=== PATIENT | female | born 1995 | race African-American/Black ===

== ENCOUNTER 2016-11-13 11:32 | Emergency (ER) | payer BC, OTHER ==
[~2016-11-13 11:32] MED LIST: PREN1CAP PO
--- NOTE | 2016-11-13 12:52 | PD ---
HPI Chief Complaint [facility], she has has no complaints of is mild contractions, no bleeding leakage of fluid. Baby is active in utero Date Seen: Nov 13, 2016 Travel History International Travel<30 Days: No Contact w/Intl Traveler<30Days: No Known Affected Area: No History of Present Illness HPI This patient is 20-year-old black female at 40 weeks gestation [facility]. Our here on OB ED patient's has a beautifully reactive strip with accelerations and variability. The baby is active according the patient. She has no other problems is mild contractions and no bleeding or leakage of fluid. Para: 0 : 2 History Social History Alcohol Use: No Tobacco Use: No Substance Abuse: No Allergies-Medications (Allergen,Severity, Reaction): Coded Allergies: No Known Allergies (Unverified , 11/13/16) Home Meds Reported Medications Vit W/ Fe Polysacch C (Vitafol Ultra 29-0.6-0.4-200 mg)1 Cap Cap Po # 30 07/21/16 Review of Systems General / Constitutional: No: Fever, Weight Gain, Chills, Other Eyes: No: Diploplia, Blurred Vision, Visual changes, Pain, Photophobia HENT: No: Headaches, Vertigo, Lightheadedness Cardiovascular: No: Irregular Rhythm, Chest Pain or Discomfort, Palpitations, Tachycardia, Syncope, Varicosities, Edema, Cyanosis Respiratory: No: Cough, Short of Breath, Other Gastrointestinal: No: Nausea, Vomiting, Diarrhea Genitourinary: No: Decreased Urinary Output, Oliguria Musculoskeletal: No: Limited ROM, Weakness, Cramping, Edema, Pain Skin: No Rash, No Itching, No Dryness, No Lumps, No Change in Pigmentation, No Change in Nails, No Alopecia, No Lesions Neurologic: No: Weakness, Dizziness, Syncope, Focal Abnormalities, Coordination Problem, Headache, Slurred Speech, Seizures Psychiatric: No: Depression, Suicidal Ideations, Homicidal Ideation Endocrine: No: Heat Intolerance, Cold Intolerance, Polydipsia, Polyuria, Other Physical Exam Narrative GENERAL: Well-nourished, well-developed patient. SKIN: Warm and dry. HEAD: Normocephalic and atraumatic. EYES: No scleral icterus. No injection or drainage. ENT: No nasal drainage noted. Mucous membranes pink. Airway patent. NECK: Supple, trachea midline. No JVD. CARDIOVASCULAR: Regular rate and rhythm without murmurs, gallops, or rubs. RESPIRATORY: Breath sounds equal bilaterally. No accessory muscle use. BREASTS: Bilateral exam showed no masses , no retractions, no nipple discharge. ABDOMEN/GI: Abdomen soft, non-tender, bowel sounds present, no rebound, no guarding Gravid to [39-] weeks size Fundal Height: [39-] GENITOURINARY: External Genitalia: intact and normal in appearance BUS glands: [-] Cervix: [-] Dilatation: [-] 1 cm Effacement: [- 70% Station: [-3] Presentation: [vtx-] Membranes: [intact Uterine Contractions: [irreg] FHT's: Category: [1-] Baseline: [144-] Reactive: [reactive-] Variability: mod Decels: [-none] EXTREMITIES: No cyanosis or edema. BACK: Nontender without obvious deformity. No CVA tenderness. NEUROLOGICAL: Awake and alert. Motor and sensory grossly within normal limits. Five out of 5 muscle strength in all muscle groups. Normal speech. Data Data Labs NST reactive MDM Interpretation(s) Patient is 20-year-old white female at 40 weeks [facility]. Here on OB ED via NST is beautifully reactive she is having irregular contractions cervix is 1 cm and 70% effaced, discharged home to bedrest return for increase in pain bleeding or leakage of fluid. We'll set patient up for induction of labor and 1 week when she be 41 weeks Diagnosis Diagnosis: Primary Impression: NST (non-stress test) nonreactive Additional Impression: Dover Ramírez contractions Disposition: DISCHARGE HOME Condition: Stable Patel Pierre II, MD Nov 13, 2016 12:52
[2017-01-05] MEDS ORDERED: LO LTAB PO (10:37)
[2017-01-12] MEDS ORDERED: METR500T10 PO (10:00)
== END 2016-11-13 13:00 | disposition home or self-care (01) ==
LOC: HOBED 11:32
DX: O47.1 False labor at or after 37 completed weeks of gestation (principal); Z3A.40 40 weeks gestation of pregnancy
CPT/HCPCS: 59025

== ENCOUNTER 2016-11-17 21:48 | Inpatient (IN) | payer BC, OTHER ==
[~2016-11-17] VITALS: Ht 154.9 cm; Wt 74.4 kg
[2016-11-17 22:45] VITALS: BP 135/91; PULSE 83
[2016-11-17] MEDS ORDERED: LACTATED RINGER'S 1000 ML INJ 1,000 ML IV PRN (23:47)
--- NOTE | 2016-11-17 23:47 | HHI.HP ---
HPI Chief Complaint Postdates induction Date Seen: Nov 17, 2016 Travel History International Travel<30 Days: No Contact w/Intl Traveler<30Days: No Known Affected Area: No History of Present Illness HPI This patient is a 20-year-old black female A1 at 40 weeks and 5 days [facility]dates induction she denies bleeding or pain or rupture the membranes, baby is active heart rate tracing however is nonreactive at time of admission, there is good variability but is not classically reactive with accelerations at this time. records are available GBS is negative Para: 0 : 2 Miscarriage: 1 History Past Medical History Medical History: Denies Significant Hx Social History Alcohol Use: No Tobacco Use: Yes Substance Abuse: Yes Allergies-Medications (Allergen,Severity, Reaction): Coded Allergies: No Known Allergies (Unverified , 11/13/16) Home Meds Reported Medications Vit W/ Fe Polysacch C (Vitafol Ultra 29-0.6-0.4-200 mg)1 Cap Cap Po # 30 07/21/16 Review of Systems General / Constitutional: No: Fever, Weight Gain, Chills, Other Eyes: No: Diploplia, Blurred Vision, Visual changes, Pain, Photophobia HENT: No: Headaches, Vertigo, Lightheadedness Cardiovascular: No: Irregular Rhythm, Chest Pain or Discomfort, Palpitations, Tachycardia, Syncope, Varicosities, Edema, Cyanosis Respiratory: No: Cough, Short of Breath, Other Gastrointestinal: No: Nausea, Vomiting, Diarrhea Genitourinary: No: Decreased Urinary Output, Oliguria Musculoskeletal: No: Limited ROM, Weakness, Cramping, Edema, Pain Skin: No Rash, No Itching, No Dryness, No Lumps, No Change in Pigmentation, No Change in Nails, No Alopecia, No Lesions Neurologic: No: Weakness, Dizziness, Syncope, Focal Abnormalities, Coordination Problem, Headache, Slurred Speech, Seizures Psychiatric: No: Depression, Suicidal Ideations, Homicidal Ideation Endocrine: No: Heat Intolerance, Cold Intolerance, Polydipsia, Polyuria, Other Physical Exam Narrative GENERAL: Well-nourished, well-developed patient. SKIN: Warm and dry. HEAD: Normocephalic and atraumatic. EYES: No scleral icterus. No injection or drainage. ENT: No nasal drainage noted. Mucous membranes pink. Airway patent. NECK: Supple, trachea midline. No JVD. CARDIOVASCULAR: Regular rate and rhythm without murmurs, gallops, or rubs. RESPIRATORY: Breath sounds equal bilaterally. No accessory muscle use. BREASTS: Bilateral exam showed no masses , no retractions, no nipple discharge. ABDOMEN/GI: Abdomen soft, non-tender, bowel sounds present, no rebound, no guarding Gravid to [-38] weeks size Fundal Height: [-37] GENITOURINARY: External Genitalia: intact and normal in appearance BUS glands: [-] Cervix: [-] Dilatation: [2-] Effacement: [-70] Station: [-3] Presentation: [-vtx] Membranes: [intact ] Uterine Contractions: [-irreg] FHT's: Category: [1-] Baseline: [133-] Reactive: [NR-] Variability: [-mod] Decels: [+ variables-] EXTREMITIES: No cyanosis or edema. BACK: Nontender without obvious deformity. No CVA tenderness. NEUROLOGICAL: Awake and alert. Motor and sensory grossly within normal limits. Five out of 5 muscle strength in all muscle groups. Normal speech. Assessment/Plan Assessment and Plan Patient is a 20-year-old white female A1 at 40 weeks 5 days [facility]dates [facility]. Patient presents with no complaints at this time records are available, she is GBS negative. Heart rate tracing shows good variability but is not classically reactive at this time we have not seen accelerations would qualify for reactive NST cervix is 2/ 70 and - 3 vertex Plan to admit cervix is 30 ripened to 170 presents proceed with the Pitocin augmentation to establish regular contractility and then observe babys reaction to that. Patel Pierre II, MD Nov 17, 2016 23:47
[2016-11-17 23:55] LABS: AUTOMATED NEUTROPHIL # 4.8 TH/MM3 (1.8-7.7); BASOPHIL % 0.3 % (0.0-2.0); EOSINOPHIL # 0.3 TH/MM3 (0-0.4); EOSINOPHIL % 3.9 % (0.0-4.0); HEMATOCRIT 31.2 % (35.0-46.0); HEMO FLAGS DIFF FINAL; LYMPH % 16.9 % (9.0-44.0); LYMPHOCYTE # 1.2 TH/MM3 (1.0-4.8); MEAN CELL VOLUME 84.5 FL (80.0-100.0); MEAN CORPUSCULAR HEMOGLOBIN 28.2 PG (27.0-34.0); MEAN CORPUSCULAR HGB CONC 33.3 % (32.0-36.0); MONO % 13.1 % (0.0-8.0); NEUT % 65.8 % (16.0-70.0); PLATELET COUNT 210 TH/MM3 (150-450); RED BLOOD COUNT 3.69 MIL/MM3 (4.00-5.30); RED CELL DISTRIBUTION WIDTH 14.6 % (11.6-17.2); WHITE BLOOD COUNT 7.3 TH/MM3 (4.0-11.0)
[2016-11-18] VITALS (44 sets, daily range): BP systolic 119–142; BP diastolic 49–107; PULSE 56–145; RESP 16–20; TEMP 97.5–98.6
[2016-11-18] MEDS ORDERED: OXYTOCIN 30 UNITS-500ML PREMIX 500 ML IV ONE
[2016-11-18] MEDS ORDERED: MINERAL OIL 10 ML VIAL TOPICAL PRN
[2016-11-18] MEDS ORDERED: SODIUM CHLORID 0.9% 500 ML INJ 500 ML IV PRN
[2016-11-18] MEDS ORDERED: ONDANSETRON HCL 4 MG/2 ML VIAL IV PRN
[2016-11-18] MEDS ORDERED: OXYTOCIN 30 UNITS-500ML PREMIX 500 ML IV SCH
[2016-11-18] MEDS ORDERED: LIDOCAINE HCL 1% 50 ML VIAL I-DERMAL PRN
[2016-11-18] MEDS ORDERED: LIDOCAINE HCL 1% 50 ML VIAL INFIL PRN
[2016-11-18] MEDS ORDERED: CITRIC ACID-SODIUM CITRATE LIQ 30 ML UDC PO SCH
[2016-11-18] MEDS: LACTATED RINGER'S 1000 ML INJ 1,000 ML IV SCH ×2 (00:02→23:47)
[2016-11-18] MEDS ORDERED: SODIUM CHLOR 0.9% 1000 ML INJ 1,000 ML IV PRN (00:07)
[2016-11-18 00:20] LABS: BACTERIA, URINE RARE /hpf; BLOOD, URINE NEG (NEG); COMMENT (UR) CULTURE INDICATED; CULTURE IF INDICATED CULTURE INDICATED; GLUCOSE,URINE NEG (NEG); KETONE, URINE NEG (NEG); MUCUS URINE FEW /lpf (OCC); NITRITE,URINE NEG (NEG); PH, URINE 6.5 (5.0-8.5); SQUAMOUS EPITHELIAL CELL URINE 18 /hpf (0-5); URINE COLOR YELLOW (YELLW/STRAW)
[2016-11-18 00:25] LABS: ALT (GPT) 14 U/L (9-42); ANION GAP 13 MEQ/L (5-15); AST (GOT) 23 U/L (16-38); BICARBONATE 21.3 MEQ/L (21.0-32.0); BLOOD UREA NITROGEN 9 MG/DL (7-18); CHLORIDE 108 MEQ/L (98-107); GLOMERULAR FILTRATION RATE 117 ML/MIN (>89); SODIUM (NA) 142 MEQ/L (136-145)
[2016-11-18 00:26] LABS: ALKALINE PHOSPHATASE 365 U/L (45-117); TOTAL BILIRUBIN ADULT 0.5 MG/DL (0.2-1.0)
[2016-11-18] MEDS ORDERED: fentaNYL 2MCG-BUPIV 0.125% INJ 100 ML ONE (04:04)
[2016-11-18] MEDS ORDERED: NO SYSTEM NARCOTICS XX PRN (05:15)
[2016-11-18] MEDS ORDERED: ePHEDrine/NS 25 MG/5 ML SYR IV PRN (05:15)
[2016-11-18] MEDS ORDERED: fentaNYL 2MCG-BUPIV 0.125% 100 ML EPIDURAL SCH (05:15)
[2016-11-18] MEDS ORDERED: DO NOT ADMINISTER ANTICOAGULANTS XX PRN (05:15)
--- NOTE | 2016-11-18 08:25 | PD.OB.DELI ---
Delivery Date: Nov 18, 2016 Anesthesia: Epidural Episiotomy: Midline Vaginal Delivery: Normal Presentation: Occiput anterior Nuchal Cord: None Delayed cord clamping (45 sec): No : Female One Minute : 4, 9 Weight: 3600 Care: Suctioned, Responded to stimulation Placenta: Spontaneous delivery, Intact, 3 vessel cord Laceration: Episiotomy, 2 deg Repair: Chromic running Additional Information 20 year old now delivered at 40 weeks and 6 days gestation via vaginal delivery, episiotomy performed and repaired with 2.0 running chromic suture, placenta delivered spontaneously and intact. Wisam Alberto MD R1 Nov 18, 2016 08:25
[2016-11-18 08:30] LABS: BLOOD GAS BASE EXCESS -5.9 mmol/L (-2-2); BLOOD GAS O2 HGB SATURATION 34 % (90-100); CORD BLOOD GAS HCO3 20 mmol/L (21-29); CORD BLOOD GAS PCO2 48 mmHG (34-78); CORD BLOOD GAS PH 7.25 (7.14-7.42); CORD BLOOD GAS PO2 21 mmHG (3.0-40.0); DRAW SITE CORD BLOOD; STAT NO
[2016-11-18] MEDS ORDERED: WITCH HAZEL 50%/GLYCERIN 12.5% 40 PAD JAR TOPICAL PRN (08:30)
[2016-11-18] MEDS ORDERED: SODIUM CHLORIDE 0.9% FLUSH 5 ML FLUSH IV PRN (08:30)
[2016-11-18] MEDS ORDERED: DOCUSATE SODIUM 50 MG/SENNA 8.6 MG TAB PO PRN (08:30)
[2016-11-18] MEDS ORDERED: BENZOCAINE 20% TOPICAL SPRAY 60 ML CAN TOPICAL PRN (08:30)
[2016-11-18] MEDS ORDERED: ZOLPIDEM TARTRATE 5 MG TAB PO PRN (08:30)
[2016-11-18] MEDS ORDERED: ONDANSETRON ODT 4 MG TAB PO PRN (08:30)
[2016-11-18] MEDS ORDERED: ALUMINUM/MAGNESIUM/SIMETH 30 ML CUP PO PRN (08:30)
--- NOTE | 2016-11-18 08:32 | PD.LABORPN ---
Subjective Subjective OB attending note This patient delivered vaginally over of second degree episiotomy without complication, as a male infant weight 3600 g 4/ 9 baby initially hypotonic responded to stimulation and blow-by oxygen. Cord gas obtained is pending time of dictation cord blood obtained placenta delivered spontaneously intact, episiotomy repaired in layers without difficulty, EBL 200 cc, mother baby doing well. Delivery done by family medicine residents did excellent job Objective Vital Signs Vital Signs Date Time Temp Pulse Resp B/P Pulse Ox O2 Delivery O2 Flow Rate FiO2 11/18/16 08:15 80 134/88 11/18/16 08:02 108 123/79 11/18/16 07:14 144 130/92 11/18/16 07:10 99 11/18/16 07:05 112 11/18/16 07:00 108 11/18/16 06:41 145 16 124/84 11/18/16 06:23 98.6 11/18/16 06:17 78 16 132/93 11/18/16 06:01 65 16 142/92 11/18/16 05:46 69 16 11/18/16 05:46 129/82 11/18/16 05:31 73 130/74 11/18/16 05:30 18 11/18/16 05:17 18 11/18/16 05:16 56 135/76 11/18/16 05:01 68 18 127/81 11/18/16 04:55 63 11/18/16 04:49 133/73 11/18/16 04:47 64 119/63 11/18/16 04:45 18 11/18/16 04:36 101 119/76 11/18/16 04:36 98.1 11/18/16 04:30 76 119/85 11/18/16 04:30 18 11/18/16 04:25 93 11/18/16 04:24 136/88 11/18/16 04:01 18 11/18/16 04:00 70 11/18/16 04:00 142/79 11/18/16 03:31 74 130/78 11/18/16 03:30 20 11/18/16 03:02 18 11/18/16 03:01 77 131/86 11/18/16 02:32 97.5 11/18/16 02:32 18 11/18/16 02:31 141/49 11/18/16 02:31 59 11/18/16 02:02 125/74 11/18/16 02:02 56 11/18/16 02:02 18 11/18/16 01:31 139/82 11/18/16 01:31 56 11/18/16 01:30 18 11/18/16 01:01 16 11/18/16 01:01 56 119/67 11/18/16 00:30 76 135/94 11/18/16 00:30 16 Objective Assessment/Plan Assessment and Plan Normal vaginal delivery with initial hypotonic baby responded well to stimulation and O2 Patel Pierre II, MD Nov 18, 2016 08:31
--- NOTE | 2016-11-18 08:36 | PD.OB.ANTE ---
Subjective Diagnosis: (1) IUGR (intrauterine growth restriction) affecting care of mother (2) Oligohydramnios antepartum (3) Cocaine abuse affecting Objective Vital Signs Vital Signs Date Time Temp Pulse Resp B/P Pulse Ox O2 Delivery O2 Flow Rate FiO2 11/18/16 08:15 80 134/88 11/18/16 08:02 108 123/79 11/18/16 07:14 144 130/92 11/18/16 07:10 99 11/18/16 07:05 112 11/18/16 07:00 108 11/18/16 06:41 145 16 124/84 11/18/16 06:23 98.6 11/18/16 06:17 78 16 132/93 11/18/16 06:01 65 16 142/92 11/18/16 05:46 69 16 11/18/16 05:46 129/82 11/18/16 05:31 73 130/74 11/18/16 05:30 18 11/18/16 05:17 18 11/18/16 05:16 56 135/76 11/18/16 05:01 68 18 127/81 11/18/16 04:55 63 11/18/16 04:49 133/73 11/18/16 04:47 64 119/63 11/18/16 04:45 18 11/18/16 04:36 101 119/76 11/18/16 04:36 98.1 11/18/16 04:30 76 119/85 11/18/16 04:30 18 11/18/16 04:25 93 11/18/16 04:24 136/88 11/18/16 04:01 18 11/18/16 04:00 70 11/18/16 04:00 142/79 11/18/16 03:31 74 130/78 11/18/16 03:30 20 11/18/16 03:02 18 11/18/16 03:01 77 131/86 11/18/16 02:32 97.5 11/18/16 02:32 18 11/18/16 02:31 141/49 11/18/16 02:31 59 11/18/16 02:02 125/74 11/18/16 02:02 56 11/18/16 02:02 18 11/18/16 01:31 139/82 11/18/16 01:31 56 11/18/16 01:30 18 11/18/16 01:01 16 11/18/16 01:01 56 119/67 11/18/16 00:30 76 135/94 11/18/16 00:30 16 11/18/16 00:05 18 11/18/16 00:00 70 11/18/16 00:00 125/107 11/17/16 22:45 83 135/91 Lab & Micro Results Test 11/17/16 11/17/16 11/18/16 22:30 22:40 07:57 Urine Color YELLOW Urine Turbidity HAZY Urine pH 6.5 Urine Specific [place] 1.010 Urine Protein TRACE mg/dL Urine Glucose (UA) NEG mg/dL Urine Ketones NEG mg/dL Urine Occult Blood NEG Urine Nitrite NEG Urine Bilirubin NEG Urine Urobilinogen LESS THAN 2.0 MG/DL Urine Leukocyte Esterase LARGE Urine RBC LESS THAN 1 /hpf Urine WBC 54 /hpf Urine WBC Clumps FEW Urine Squamous Epithelial 18 /hpf Cells Urine Bacteria RARE /hpf Urine Mucus FEW /lpf Microscopic Urinalysis Comment CULTURE INDICATED White Blood Count 7.3 TH/MM3 Red Blood Count 3.69 MIL/MM3 Hemoglobin 10.4 GM/DL Hematocrit 31.2 % Mean Corpuscular Volume 84.5 FL Mean Corpuscular Hemoglobin 28.2 PG Mean Corpuscular Hemoglobin 33.3 % Concent Red Cell Distribution Width 14.6 % Platelet Count 210 TH/MM3 Mean Platelet Volume 11.0 FL Neutrophils (%) (Auto) 65.8 % Lymphocytes (%) (Auto) 16.9 % Monocytes (%) (Auto) 13.1 % Eosinophils (%) (Auto) 3.9 % Basophils (%) (Auto) 0.3 % Neutrophils # (Auto) 4.8 TH/MM3 Lymphocytes # (Auto) 1.2 TH/MM3 Monocytes # (Auto) 0.9 TH/MM3 Eosinophils # (Auto) 0.3 TH/MM3 Basophils # (Auto) 0.0 TH/MM3 CBC Comment DIFF FINAL Differential Comment Sodium Level 142 MEQ/L Potassium Level 4.0 MEQ/L Chloride Level 108 MEQ/L Carbon Dioxide Level 21.3 MEQ/L Anion Gap 13 MEQ/L Blood Urea Nitrogen 9 MG/DL Creatinine 0.76 MG/DL Estimat Glomerular Filtration 117 ML/MIN Rate Random Glucose 73 MG/DL Calcium Level 8.4 MG/DL Total Bilirubin 0.5 MG/DL Aspartate Amino Transf 23 U/L (AST/SGOT) Alanine Aminotransferase 14 U/L (ALT/SGPT) Alkaline Phosphatase 365 U/L Total Protein 6.7 GM/DL Albumin 2.7 GM/DL Blood Type O POSITIVE Antibody Screen NEGATIVE Blood Bank Comment Band and Hold Blood Gas Puncture Site CORD BLOOD Blood Gas Base Excess -5.9 mmol/L Blood Gas Oxygen Saturation 34 % Cord Blood HCO3 20 mmol/L Cord Arterial Blood pH 7.25 Cord Arterial Blood PCO2 48 mmHG Cord Arterial Blood PO2 21 mmHG Date/Time Procedure Status Source Growth 11/17/16 22:30 Urine Culture Received Urine Clean Catch Pending Physical Exam GENERAL: Well-nourished, well-developed patient. CARDIOVASCULAR: Regular rate and rhythm without murmurs, gallops, or rubs. RESPIRATORY: Breath sounds equal bilaterally. No accessory muscle use. ABDOMEN/GI: Abdomen soft, non-tender. Fundus: [-] GENITOURINARY: External Genitalia: intact and normal in appearance Cervix: [-] Dilatation: [-] Effacement: [-] Station: [-] Presentation: [-] Membranes: [-] Uterine Contractions: [-] FHT's: Category: [-] Baseline: [-] Reactive: [-] Variability: [-] Decels: [-] EXTREMITIES: No cyanosis or edema, non-tender, without signs of DVT. Assessment and Plan Problem List: (1) IUGR (intrauterine growth restriction) affecting care of mother Status: Acute (2) Oligohydramnios antepartum Status: Acute (3) Cocaine abuse affecting Status: Acute Robert Lara MD R2 Nov 18, 2016 08:36
[2016-11-18] MEDS ORDERED: DIPHTH/TETANUS/ACEL PERTUSSIS (BOOSTER) 0.5 ML VIAL/PFS IM ONE (16:00)
[2016-11-18] MEDS ORDERED: MEASLES, MUMPS, RUBELLA VACCINE 0.5 ML VIAL SQ ONE (16:00)
[2016-11-18] MEDS: IBUPROFEN 600 MG TAB PO PRN (17:20)
[2016-11-18] MEDS: ACETAMINOPHEN 325 MG TAB PO PRN (20:28)
[2016-11-18] MEDS: SODIUM CHLORIDE 0.9% FLUSH 5 ML FLUSH IV SCH (21:00)
[2016-11-19] MEDS: IBUPROFEN 600 MG TAB PO PRN ×2 (03:53→18:56)
[2016-11-19] MEDS: ACETAMINOPHEN 325 MG TAB PO PRN (03:53)
[2016-11-19 08:00] VITALS: BP 118/83; PULSE 52; RESP 18; TEMP 97.9
--- NOTE | 2016-11-19 08:38 | HHI.OB ---
Subjective Post Day: 1 Remarks Patient seen and examined this morning. AFVSS overnight. day #1. Pain well controlled. Reports vaginal bleeding at about the amount of her menstrual period. Denies dysuria. No breast tenderness. She is feeding the baby via breast and formula. Appetite good. No nausea or vomiting. Reports flatus. Ambulating well. Denies calf pain, shortness of breath, or cough. She otherwise has no other complaints or concerns this morning. Objective Vitals/I&O Vital Signs Date Time Temp Pulse Resp B/P Pulse Ox O2 Delivery O2 Flow Rate FiO2 11/18/16 19:48 98.6 62 18 123/65 11/18/16 12:00 68 18 127/75 11/18/16 12:00 98.1 11/18/16 08:45 18 11/18/16 08:37 98.1 Objective Remarks GENERAL: Well-nourished, well-developed patient. CARDIOVASCULAR: Regular rate and rhythm without murmurs, gallops, or rubs. RESPIRATORY: Breath sounds equal bilaterally. No accessory muscle use. ABDOMEN/GI: Abdomen soft, non-tender. Fundus: Firm, non-tender at umbilicus. GENITOURINARY: Light to moderate bleeding. EXTREMITIES: No cyanosis or edema, non-tender, without signs of DVT. Medications and IVs Current Medications Medications (Trade) Dose Ordered Sig/Tamara Route Start Time Stop Time Status Last Admin Lactated Ringer's 1,000 ml @ 125 mls/hr Q8H IV 11/17/16 23:47 11/18/16 00:02 Lactated Ringer's 1,000 ml @ 3,000 mls/hr Q20M PRN IV 11/17/16 23:47 Sodium Chloride 500 ml @ 1,000 mls/hr ONCE PRN IV 11/18/16 00:00 11/24/16 00:00 (NS 1000 ml Inj) 1,000 ml @ 100 mls/hr Q10H PRN IV 11/18/16 00:07 (Zofran Inj) 4 mg Q6H PRN IV 11/18/16 00:00 (fentaNYL INJ) 50 mcg Q1H PRN IV PUSH 11/18/16 00:00 (fentaNYL INJ) 100 mcg Q1H PRN IV PUSH 11/18/16 00:00 11/18/16 02:45 Mineral Oil 10 ml 10 ml UNSCH PRN TOPICAL 11/18/16 00:00 Oxytocin 500 ml @ 0 mls/hr TITRATE IV 11/18/16 00:00 11/18/16 00:03 (fentaNYL 2MCG-BUPIV 0.125% INJ) 100 ml @ 0 mls/hr TITRATE EPIDURAL 11/18/16 05:15 (NS Flush) 2 ml BID IV 11/18/16 09:00 (NS Flush) 2 ml UNSCH PRN IV 11/18/16 08:30 (Tylenol) 650 mg Q4H PRN PO 11/18/16 08:30 11/19/16 03:53 (Motrin) 600 mg Q6H PRN PO 11/18/16 08:30 11/19/16 03:53 (Americaine 20% Top Spr) 1 spray Q4H PRN TOPICAL 11/18/16 08:30 11/19/16 03:52 (Tucks Pads) 1 applic QID PRN TOPICAL 11/18/16 08:30 11/19/16 03:52 (Mila-Colace) 2 tab Q12H PRN PO 11/18/16 08:30 11/18/16 20:27 (Ambien) 5 mg HS PRN PO 11/18/16 08:30 (Mag-Al Plus Susp Liq) 15 ml Q8H PRN PO 11/18/16 08:30 (Zofran Odt) 4 mg Q6H PRN PO 11/18/16 08:30 Assessment/Plan Problem List: (1) care following vaginal delivery Plan: 20 year old now PPD#1 following vaginal delivery. 1. Care - AFVSS - Encouraged OOB, as tolerated - Motrin prn pain - Advised pelvic rest x 6 weeks - Breast and formula feeding - Contraception: desires OCPs. Will follow up with [facility] - F/u with [facility] for contraception and care following discharge 2. Abnormal UA - UA with large LE, negative nitrite, culture sent - Patient is asymptomatic - Will follow culture results and treat if necessary wdw Wisam Pizarro MD R1 Nov 19, 2016 08:38
[2016-11-19] MEDS: SODIUM CHLORIDE 0.9% FLUSH 5 ML FLUSH IV SCH (21:00)
[2016-11-19] MEDS: LACTATED RINGER'S 1000 ML INJ 1,000 ML IV SCH (23:47)
--- NOTE | 2016-11-20 07:29 | HHI.OB ---
Subjective Post Day: 2 Remarks day # 2. AFVSS overnight. Pain is well-controlled. Decreased lochia. Denies dysuria. No breast tenderness. She is feeding the baby via breast/bottle. Appetite good. No nausea or vomiting. Positive flatus. Positive bowel movement. Ambulating well. Denies calf pain, shortness of breath, or cough. Otherwise, she is doing well this morning and has no other complaints. (Robert Lara MD R2) Objective Vitals/I&O Vital Signs Date Time Temp Pulse Resp B/P Pulse Ox O2 Delivery O2 Flow Rate FiO2 11/19/16 08:00 52 18 118/83 11/19/16 08:00 97.9 Objective Remarks GENERAL: Well-nourished, well-developed patient. CARDIOVASCULAR: Regular rate and rhythm without murmurs, gallops, or rubs. RESPIRATORY: Breath sounds equal bilaterally. No accessory muscle use. ABDOMEN/GI: Abdomen soft, non-tender. Fundus: Firm, non-tender at umbilicus. GENITOURINARY: Light to moderate bleeding. EXTREMITIES: No cyanosis or edema, non-tender, without signs of DVT. Medications and IVs Current Medications Medications (Trade) Dose Ordered Sig/Tamara Route Start Time Stop Time Status Last Admin Lactated Ringer's 1,000 ml @ 125 mls/hr Q8H IV 11/17/16 23:47 11/18/16 00:02 Lactated Ringer's 1,000 ml @ 3,000 mls/hr Q20M PRN IV 11/17/16 23:47 Sodium Chloride 500 ml @ 1,000 mls/hr ONCE PRN IV 11/18/16 00:00 11/24/16 00:00 (NS 1000 ml Inj) 1,000 ml @ 100 mls/hr Q10H PRN IV 11/18/16 00:07 (Zofran Inj) 4 mg Q6H PRN IV 11/18/16 00:00 (fentaNYL INJ) 50 mcg Q1H PRN IV PUSH 11/18/16 00:00 (fentaNYL INJ) 100 mcg Q1H PRN IV PUSH 11/18/16 00:00 11/18/16 02:45 Mineral Oil 10 ml 10 ml UNSCH PRN TOPICAL 11/18/16 00:00 Oxytocin 500 ml @ 0 mls/hr TITRATE IV 11/18/16 00:00 11/18/16 00:03 (fentaNYL 2MCG-BUPIV 0.125% INJ) 100 ml @ 0 mls/hr TITRATE EPIDURAL 11/18/16 05:15 (NS Flush) 2 ml BID IV 11/18/16 09:00 (NS Flush) 2 ml UNSCH PRN IV 11/18/16 08:30 (Tylenol) 650 mg Q4H PRN PO 11/18/16 08:30 11/19/16 03:53 (Motrin) 600 mg Q6H PRN PO 11/18/16 08:30 11/19/16 18:56 (Americaine 20% Top Spr) 1 spray Q4H PRN TOPICAL 11/18/16 08:30 11/19/16 03:52 (Tucks Pads) 1 applic QID PRN TOPICAL 11/18/16 08:30 11/19/16 03:52 (Mila-Colace) 2 tab Q12H PRN PO 11/18/16 08:30 11/18/16 20:27 (Ambien) 5 mg HS PRN PO 11/18/16 08:30 (Mag-Al Plus Susp Liq) 15 ml Q8H PRN PO 11/18/16 08:30 (Zofran Odt) 4 mg Q6H PRN PO 11/18/16 08:30 (Robert Lara MD R2) Assessment/Plan Problem List: (1) care following vaginal delivery Plan: 20 year old now PPD#2 following vaginal delivery. 1. Care - AFVSS - Encouraged OOB, as tolerated - Motrin prn pain - Advised pelvic rest x 6 weeks - Breast and formula feeding - Contraception: desires OCPs. Will follow up with [facility] - F/u with Mary Jane Chappius for contraception and care following discharge 2. Abnormal UA - UA with large LE, negative nitrite, culture sent - Patient is asymptomatic - Urine culture shows Gardnerella wdw Dr. Eaton Discharge Planning Discharge home today (Robert Lara MD R2) Collaborating MD Comments Agree with discharge plan (Glo Eaton MD) Robert Lara MD R2 Nov 20, 2016 07:29 Glo Eaton MD Nov 20, 2016 09:26
[2016-11-20] MEDS ORDERED: IBUP-232 PO (08:04)
--- NOTE | 2016-11-20 08:05 | HHI.DCPOC ---
Discharge Care Plan Diagnosis: (1) care following vaginal delivery Report Symptoms to Your Doctor -Temperate above 100.5 degrees -Redness, of incision or excessive or foul smelling drainage -Unusual pain or calf pain -Increased vaginal bleeding -Painful or difficulty urinating -Feelings of extreme sadness or anxiety after 2 weeks Goals to Promote Your Health * To prevent worsening of your condition and complications * To maintain your health at the optimal level Directions to Meet Your Goals Take your medications as prescribed Follow your dietary instruction Follow activity as directed Ensure plenty of rest for recovery Drink fluids for hydration Keep your appointments as scheduled Take your immunizations and boosters as scheduled If your symptoms worsen call your PCP, if no PCP go to Urgent Care Center or Emergency Room Smoking is Dangerous to Your Health. Avoid second hand smoke Call the 24-hour crisis hotline for domestic abuse at Wisam Alberto MD R1 Nov 20, 2016 08:05
[2016-11-20] MEDS: IBUPROFEN 600 MG TAB PO PRN (08:29)
[2016-11-20] MEDS: ACETAMINOPHEN 325 MG TAB PO PRN (08:30)
[2016-11-20] MEDS ORDERED: METR500T10 PO (08:40)
[2016-11-20] MEDS ORDERED: SENN1TAB PO (08:41)
--- NOTE | 2016-11-20 11:39 | PD.CIRC ---
Circumcision Procedure Note Procedure Date: Nov 20, 2016 Procedure Time: 11:20 Procedure: Circumcision Pre-procedure diagnosis: circumcision Post-procedure diagnosis: circumcision Informed Consent: The risks, benefits, indications, potential complications, and alternatives were explained to the patient/family and informed consent obtained. The baby was brought to the procedure room where a time-out was done to ID the patient and the procedure. Performing Physician: Kirstin Barbosa Anesthesia used: 1% lidocaine injected Type of block: dorsal penile block Device used: Gomco 1.3 Description: The baby was prepped and draped in a sterile fashion. The procedure followed standard technique. The baby tolerated the procedure well without complication. Estimated blood loss: minimal Specimen: No Kirstin Rivas MD Nov 20, 2016 11:39
[2017-01-05] MEDS ORDERED: LO LTAB PO (10:37)
[2017-01-12] MEDS ORDERED: METR500T10 PO (10:00)
== END 2016-11-20 12:26 | disposition home or self-care (01) | DRG 775 ==
LOC: H2EB 21:48 → H1EA 11-18 11:38
PROVIDERS: ADMIT Obstetrics & Gynecology Maternal & Fetal Medicine; ATTEND Obstetrics & Gynecology Maternal & Fetal Medicine
PROC: 3E033VJ Introduction of Other Hormone into Peripheral Vein, Percutaneous Approach (ICD-10-PCS; 2016-11-17)
PROC: 10E0XZZ Delivery of Products of Conception, External Approach (ICD-10-PCS; principal; 2016-11-18)
PROC: 0KQM0ZZ Repair Perineum Muscle, Open Approach (ICD-10-PCS; 2016-11-18)
PROC: 0W8NXZZ Division of Female Perineum, External Approach (ICD-10-PCS; 2016-11-18)
PROC: 00HU33Z Insertion of Infusion Device into Spinal Canal, Percutaneous Approach (ICD-10-PCS; 2016-11-18)
PROC: 3E0R3CZ (ICD-10-PCS; 2016-11-18)
DX: O99.324 Drug use complicating childbirth (principal); O41.03X0 Oligohydramnios, third trimester, not applicable or unspecified; O36.5930 Maternal care for other known or suspected poor fetal growth, third trimester, not applicable or unspecified; O99.334 Smoking (tobacco) complicating childbirth; O70.1 Second degree perineal laceration during delivery; F17.210 Nicotine dependence, cigarettes, uncomplicated; Z3A.40 40 weeks gestation of pregnancy; O48.0 Post-term pregnancy; F14.10 Cocaine abuse, uncomplicated; Z37.0 Single live birth
CPT/HCPCS: 59025; 80053; 81001; 82805; 85025; 86850; 86900; 86901; 87086; J2590; J3010; J7120